=== PATIENT | female | born 1975 | race Caucasian/White ===

== ENCOUNTER 2018-03-18 21:16 | Emergency (ER) | payer MEDICAID ==
[~2018-03-18] VITALS: Ht 160 cm; Wt 64.1 kg
[2018-03-18] MEDS ORDERED: TOPROL XL100 MG PO ×2 (21:20)
[2018-03-18] MEDS ORDERED: TREXALL10 MG PO (21:21)
[2018-03-18] MEDS ORDERED: EFFEXOR100 MG (21:22)
[2018-03-18] MEDS ORDERED: PREDNISONE5 MG (21:22)
[2018-03-18 21:23] VITALS: Ht 160 cm; Wt 64.1 kg
[2018-03-18 22:09] LABS: BASOPHILS 0.2 % (0-2); EOSINOPHILS 1.5 % (0-7); HEMATOCRIT 30.4 % (36.0-48.0); IMMATURE GRANULOCYTES 0.2 % (0-5); MCH 30.3 pg (26.0-34.0); MCHC 32.9 g/dL (31.0-37.0); MCV 92.1 fL (80.0-100.0); MEAN PLATELET VOLUME 8.5 fL (7.4-10.4); MONOCYTES 4.9 % (2-11); NEUTROPHILS 62.2 % (40-80); PLATELET COUNT 365 10x3/uL (130-400); RDW 16.2 % (11.5-14.5); WBC 9.6 10x3/uL (4.8-10.8)
[2018-03-18 22:34] LABS: CALC OSMOLALITY 281 mosm/kg (275-300); CALCIUM 8.8 mg/dL (8.5-10.1); CARBON DIOXIDE 26.4 mmol/L (21.0-32.0); CHLORIDE - SERUM 106 mmol/L (98-107); CKMB 0.8 U/L (0.0-3.6); CREATINE KINASE 67 UL (21-215); CREATININE - SERUM 0.7 mg/dL (0.6-1.3); GLUCOSE 105 mg/dL (74-106); POTASSIUM - SERUM 4.1 mmol/L (3.5-5.1); SODIUM 140 mmol/L (136-145); TROPONIN-I < 0.017 ng/mL (0.000-0.060); UREA NITROGEN 21 mg/dL (7-18); eGFR NON AFRICAN AMERICAN > 90 mL/min (90-120)
[2018-03-19 01:08] VITALS: BP 151/103
[2018-03-20] MEDS ORDERED: ULTRAM50 MG PO (12:45)
[2018-03-20] MEDS ORDERED: NORVASC5 MG PO (12:45)
[2018-03-20] MEDS ORDERED: EFFEXOR100 MG PO (12:45)
== END 2018-03-19 01:11 | disposition home or self-care (01) ==
LOC: D.ER 21:16
PROVIDERS: Family Medicine
DX: R07.9 Chest pain, unspecified (principal); F41.9 Anxiety disorder, unspecified; I10 Essential (primary) hypertension; R06.02 Shortness of breath; R53.1 Weakness; K21.9 Gastro-esophageal reflux disease without esophagitis; F17.200 Nicotine dependence, unspecified, uncomplicated

== ENCOUNTER 2018-03-20 09:56 | Emergency (ER) | payer MEDICAID ==
[~2018-03-20] VITALS: Ht 160 cm; Wt 63.6 kg
[~2018-03-20 09:56] MED LIST: EFFEXOR100 MG; PREDNISONE5 MG; TOPROL XL100 MG PO; TREXALL10 MG PO
[2018-03-20 09:58] VITALS: Ht 160 cm; Wt 63.6 kg
[2018-03-20] MEDS ORDERED: ULTRAM50 MG PO (12:45)
[2018-03-20] MEDS ORDERED: NORVASC5 MG PO (12:45)
[2018-03-20] MEDS ORDERED: EFFEXOR100 MG PO (12:45)
[2018-03-20 13:05] VITALS: BP 142/89
== END 2018-03-20 12:58 | disposition home or self-care (01) ==
LOC: D.ER 09:56
DX: I10 Essential (primary) hypertension (principal); M25.571 Pain in right ankle and joints of right foot

== ENCOUNTER 2018-05-26 13:48 | Emergency (ER) | payer OTHER ==
[~2018-05-26] VITALS: Ht 160 cm; Wt 62.7 kg
[~2018-05-26 13:48] MED LIST changes: +EFFEXOR100 MG PO; +NORVASC5 MG PO; +ULTRAM50 MG PO
[2018-05-26 14:07] VITALS: Ht 160 cm; Wt 62.7 kg
[2018-05-26 17:59] VITALS: BP 167/117
== END 2018-05-26 18:01 | disposition home or self-care (01) ==
LOC: D.ER 13:48
DX: M25.511 Pain in right shoulder (principal); M06.9 Rheumatoid arthritis, unspecified; I10 Essential (primary) hypertension

== ENCOUNTER 2019-05-09 14:10 | Emergency (ER) | payer SELFPAY ==
[~2019-05-09] VITALS: Ht 157.5 cm; Wt 53.6 kg
[2019-05-09 14:20] VITALS: Ht 157.5 cm; Wt 53.6 kg
[2019-05-09 18:27] VITALS: BP 149/87
== END 2019-05-09 18:28 | disposition home or self-care (01) ==
LOC: D.ER 14:10
PROVIDERS: Family Medicine
DX: T76.21XA Adult sexual abuse, suspected, initial encounter (principal); S00.83XA Contusion of other part of head, initial encounter; Y93.89 Activity, other specified; Y92.89 Other specified places as the place of occurrence of the external cause; S00.11XA Contusion of right eyelid and periocular area, initial encounter

== ENCOUNTER 2019-07-08 09:21 | Emergency (ER) | payer MEDICAID ==
[~2019-07-08] VITALS: Ht 157.5 cm; Wt 50.2 kg
[2019-07-08 09:25] VITALS: Ht 157.5 cm; Wt 50.2 kg
[2019-07-08] MEDS ORDERED: IBUPROFEN800 MG PO (10:00)
[2019-07-08] MEDS ORDERED: NORVASC10 MG PO (10:00)
[2019-07-08] MEDS ORDERED: METOPROLOL TART50 MG PO (10:00)
[2019-07-08] MEDS ORDERED: ACETAMINOPHEN500 M1 PO (10:00)
[2019-07-08 10:35] VITALS: BP 161/94
== END 2019-07-08 10:35 | disposition home or self-care (01) ==
LOC: D.ER 09:21
DX: Z76.0 Encounter for issue of repeat prescription (principal); I10 Essential (primary) hypertension; F17.210 Nicotine dependence, cigarettes, uncomplicated